=== PATIENT | female | born 1955 | race Caucasian/White ===

== ENCOUNTER 2016-09-24 21:12 | Observation (INO) | payer MEDICAID ==
[~2016-09-24] VITALS: Ht 157.5 cm; Wt 59.5 kg
--- NOTE | ~2016-09-24 | HEMODYNAMI ---
PATIENT:GINA FUENTES MEDICAL RECORD: [id number] : 51 LOCATION:[facility] D.2115 [facility]# [id number] ADMISSION DATE: 09/24/16 Generatedon:09/25/201614:25 Patient name: GINA FUENTES Patient #: [id number] SSN: D OB: 1955 Date of study: 09/25/2016 Page: Of Hemodynamic Procedure Report Patient Data Patient Demographics Procedure consent was obtained First Name: GINA Gender: Female Last Name: ALFREDO : 1955 [facility] Initial: J Age: 61 year(s) Patient #: [id number] Race: Additional ID: [id number] Contact details Address: [address] [place] [address] State: [place] City: [facility] [place] Zip code: [address] Past Medical History History of disease Date Diagnosis Comments CAD Allergies Allergen Reaction Date Comments Reported Codeine 02/13/2015 Other allergy 02/13/2015 IBUPROFEN Admission Admission Data Admission Date: 09/24/2016 Admission Time: 22:32 Room #: D.2115 Procedure Procedure Types Cath Procedure Diagnostic Procedure [facility] w/Coronaries w/Grafts PCI Procedure Coronary Stent Initial Miscellaneous Procedures Moderate Sedation up to 15 minutes Procedure Description Procedure Date Procedure Date: 09/25/2016 Procedure Start Time: 14:00 Procedure End Time: 14:24 Procedure Staff Name Function Kanu Patel MD Performing Physician Dallas Duff RN Nurse Mauricio Russ RT Monitor Stefan Mercedes RT Scrub Procedure Data Cath Procedure Fluoroscopy Diagnostic fluoroscopy Total fluoroscopy Time: 3.4 time: 3.4 min min Diagnostic fluoroscopy Total fluoroscopy dose: 511 dose: 511 mGy mGy Contrast Material Contrast Material Type Amount (ml) Isovue 300 126 Entry Location Entry Primary Successful Side Size Upsize Upsize Entry Closure Succes sful Closure Location (Fr) 1 (Fr) 2 (Fr) Remarks Device Remarks Femoral Right 5 Fr 6 Fr artery Short Estimated blood loss: 10 ml Diagnostic catheters Device Type Used For End Catheter Placement Cordis 5Fr Pigtail Procedure Catheter (MP) Cordis 5Fr JL 4.0 Procedure Catheter (MP) Cordis 5Fr 3DRC Catheter Procedure (MP) Procedure Complications No complications Procedure Medications Medication Administration Route Dosage Oxygen NC 2 l/min Lidocaine 2% added to field 20 Heparin Flush Bag added to field 2 bags (1000units/500ml NS) 0.9% NaCl I.V. 100 ml/hr Zofran I.V. 4 mg Versed I.V. 1 mg Fentanyl I.V. 50 mcg Versed I.V. 1 mg Fentanyl I.V. 50 mcg Heparin Bolus I.V. 4000 units Integrilin (Bolus I.V. 5.6 ml 2mg/ml) Versed I.V. 1 mg Fentanyl I.V. 50 mcg Versed I.V. 1 mg Fentanyl I.V. 50 mcg Plavix P.O. 600 mg Hemodynamics Rest Heart Rate: 62 (bpm) Snapshots Pre Cath Intra NCS Post Cath Vital Signs Time Heart Resp SPO2 etCO2 TB8wdct NIBP (mmHg) Rhythm Pain Sedation Rate (ipm) (%) (mmHg) (mmHg) Status Level (bpm) 13:48:22 59 21 97 0 0 138/67(114) NSR 0 (11) 10(A) , No pain 13:52:38 60 14 96 0 0 130/68(98) NSR 0 (11) 10(A) , No pain 13:56:50 62 16 96 0 0 129/70(99) NSR 0 (11) 10(A) , No pain 14:01:02 64 16 95 0 0 129/69(102) NSR 0 (11) 9(A) , No pain 14:05:13 66 15 96 0 0 133/71(102) NSR 0 (11) 9(A) , No pain 14:09:26 65 14 96 0 0 126/72(91) NSR 0 (11) 9(A) , No pain 14:13:39 66 16 96 0 0 111/63(80) NSR 0 (11) 9(A) , No pain 14:17:47 66 15 97 0 0 115/61(87) NSR 0 (11) 10(A) , No pain 14:21:53 65 8 97 0 0 117/71(90) NSR 0 (11) 10(A) , No pain Medications Time Medication Route Dose Verified Delivered Reason Notes Effectiveness by by 13:49:18 Oxygen NC 2 Kanu Buffie used for l/min Amanda Duff RN procedure 13:49:24 Lidocaine 2% added 20ml Kanu Kanu for local to vial Amanda Patel MD anesthetic field 13:49:34 Heparin Flush added 2 Kanu Kanu used for Bag to bags Amanda Patel MD procedure (1000units/500ml field NS) 13:49:44 0.9% NaCl I.V. 100 Kanu Buffie Per physician ml/hr Amanda Duff RN 13:49:53 Zofran I.V. 4 mg Kanu Wareie Per physician Amanda Duff RN 13:54:15 Versed I.V. 1 mg Kanu Buffie for sedation Amanda Duff RN 13:54:20 Fentanyl I.V. 50 Kanu Buffie for sedation mcg Amanda Duff RN 13:58:58 Versed I.V. 1 mg Kanu Buffie for sedation Amanda Duff RN 13:59:02 Fentanyl I.V. 50 Kanu Buffie for sedation mcg Amanda Duff RN 14:04:38 Heparin Bolus I.V. 4000 Kanu Buffie for verifi ed units Amanda Duff RN anticoagulation with dr patel 14:06:01 Integrilin I.V. 5.6 Kanu Buffie for Wasted (Bolus 2mg/ml) ml Amanda Duff RN antiplatelet 4.4 ml therapy of vial 14:08:19 Versed I.V. 1 mg Kanu Buffie for sedation Amanda Duff RN 14:08:23 Fentanyl I.V. 50 Kanu Buffie for sedation mcg Amanda Duff RN 14:12:46 Versed I.V. 1 mg Kanu Buffie for sedation Amanda Duff RN 14:12:49 Fentanyl I.V. 50 Kanu Buffie for sedation mcg Amanda Duff RN 14:18:57 Plavix P.O. 600 Kanu Buffie for mg Amanda Duff RN antiplatelet therapy Procedure Log Time Note 13:15:42 Mauricio Russ RT(R) sent for patient. Start room use. 13:24:43 Time tracking: Regular hours 13:24:47 Plan of Care:Hemodynamics will remain stable., Cardiac rhythm will remain stable., Comfort level will be maintained., Respiratory function will remain adequate., Patient/ family verbilizes understanding of procedure., Procedure tolerated without complication., Recovers from procedure without complications.. 13:41:36 Patient received from PCU to CCL 1 Alert and oriented. Tansferred to table in Supine position. 13:41:37 Warm blankets applied, and edda hugger turned on for patient comfort. 13:41:38 Correct patient and procedure confirmed by team. 13:41:39 Signed procedure consent form obtained from patient. 13:41:40 ECG and BP/O2 sat monitors applied to patient. 13:47:15 Vital chart was started 13:49:18 Oxygen 2 l/min NC was administered by Dallas Duff RN; used for procedure; 13:49:24 Lidocaine 2% 20ml vial added to field was administered by Kanu Patel MD; for local anesthetic; 13:49:34 Heparin Flush Bag (1000units/500ml NS) 2 bags added to field was administered by Kanu Patel MD; used for procedure; 13:49:44 0.9% NaCl 100 ml/hr I.V. was administered by Dallas Duff RN; Per physician; 13:49:53 Zofran 4 mg I.V. was administered by Dallas Duff RN; Per physician; 13:51:12 Baseline sample Acquired. 13:51:16 Rhythm: sinus rhythm 13:51:17 Full Disclosure recording started 13:51:22 H&P Date Dictated: 09/25/2016 Within 30 days and on chart.. 13:51:23 Pre-procedure instructions explained to patient. 13:51:23 Pre-op teaching completed and patient verbalized understanding. 13:51:25 Family in patients room. 13:51:27 Patient NPO since Midnight. 13:51:29 Is the patient allergic to Iodine/contrast media? No. 13:51:32 Is patient on blood thinner?No 13:51:37 Patient diabetic? No. 13:51:40 Patient not . Patient is over age 55. 13:51:42 Previous problem with sedation/anesthesia? Yes Nausea 13:51:43 Snore? Yes 13:51:55 Sleep apnea? No 13:51:56 Deviated septum? No 13:51:57 Opens mouth fully? Yes 13:51:58 Sticks out tongue? Yes 13:52:02 Airway obstruction? Yes COPD 13:52:11 Dentures? Yes OUT 13:52:14 Pre procedure: right dorsailis pedis pulse 1+ Palpable, but thready & weak; easily obliterated 13:52:16 Patient pain scale 0/10 ?. 13:52:21 IV patent on arrival in left forearm with 0.9% NaCl at [facility]. 13:52:23 Lab results completed and on chart. 13:52:26 Right groin area was prepped with chlora-prep and draped in sterile fashion 13:52:27 Alarms reviewed by R. N. 13:52:27 Sharps counted by scrub and verified by R.N. 13:52:33 Use device set Femoral Dx 13:52:34 Tegaderm 4 x 4 opened to sterile field. 13:52:35 Acist Hand Control opened to sterile field. 13:52:36 Acist Manifold opened to sterile field. 13:52:37 Acist Syringe opened to sterile field. 13:52:37 Bag Decanter opened to sterile field. 13:52:38 Medline Cath Pack opened to sterile field. 13:52:38 Terumo 5Fr [place] Sheath opened to sterile field. 13:52:38 St Mayito 260cm J .035 wire opened to sterile field. 13:52:39 Diagnostic Infinity 5Fr Multipack catheter opened to sterile field. 13:52:47 --------ALL STOP TIME OUT------ 13:52:47 Final Timeout: patient, procedure, and site verified with staff and physician. All members of the team are in agreement. 13:52:51 Right groin site verified by team. 13:52:57 Sedation plan: IV Moderate Sedation Versed, Fentanyl 13:54:15 Versed 1 mg I.V. was administered by Dallas Duff RN; for sedation; 13:54:20 Fentanyl 50 mcg I.V. was administered by Dallas Duff RN; for sedation; 13:58:58 Versed 1 mg I.V. was administered by Dallas Duff RN; for sedation; 13:59:02 Fentanyl 50 mcg I.V. was administered by Dallas Duff RN; for sedation; 14:00:42 Procedure started. 14:00:46 Local anesthetic to right femoral artery with Lidocaine 2% by Kanu Patel MD.INITIAL ACCESS ONLY 14:00:57 A 5 Fr sheath was inserted into the Right Femoral artery 14:01:21 A Cordis 5Fr Pigtail Catheter (MP) was advanced over the wire and used for Procedure. 14:01:25 LV angiography performed. 14:01:29 LV gram done using CROW 14:01:34 EF : 60 % 14::38 Injector settings: Ml/sec: 10, Volume: 20, 14:01:40 Catheter removed. 14::47 A Cordis 5Fr JL 4.0 Catheter (MP) was advanced over the wire and used for Procedure. 14:01:49 LCA angiography performed. 14:02:12 Catheter removed. 14:02:52 A Cordis 5Fr 3DRC Catheter (MP) was advanced over the wire and used for Procedure. 14:03:15 MCFADDEN to LAD angiography performed. 14:04:38 Heparin Bolus 4000 units I.V. was administered by Dallas Duff RN; for anticoagulation; verified with dr patel 14:04:42 RCA angiography performed. 14:04:44 Catheter removed. 14:05:20 Roadster BasixCompak Inflation Kit opened to sterile field. 14:05:30 Cordis 6FR XBLAD 3.5 guide catheter opened to sterile field. 14:06:01 Integrilin (Bolus 2mg/ml) 5.6 ml I.V. was administered by Dallas Duff RN; for antiplatelet therapy; Wasted 4.4 ml of vial 14:06:17 Sheath upsized to a 6 Fr Short. 14:06:30 6 Fr XBLAD 3.5 guide catheter was inserted over the wire 14:07: Guide Catheter removed. pressure damping. 14:07:08 Cordis 6FR XBLAD 3.5 SH guide catheter opened to sterile field. 14:07:23 Kemp Whisper J 300cm 0.014 guide wire opened to sterile field. 14::40 6 Fr XBLAD 3.5 SH guide catheter was inserted over the wire 14:08:19 Versed 1 mg I.V. was administered by Dallas Duff RN; for sedation; 14::23 Fentanyl 50 mcg I.V. was administered by Dallas Duff RN; for sedation; 14:08:37 Whisper wire advanced. 14::43 Wire advanced across lesion. 14:09:29 Inflation number: 1 A Mozec Rx 2.0 x 15 balloon was prepped and advanced across the Ramus, then inflated to 11 RAMA for 0:10 (min:sec). 14:09:57 Multiple inflations made at 11 Atms. 14:10:02 Balloon removed over the wire. 14:12:41 Inflation Number: 2 A Louis OTW 2.25 x 26 stent was prepped and advanced across the Ramus. The stent was deployed at 11 RAMA for 0:10 (min:sec). 14:12:46 Versed 1 mg I.V. was administered by Dallas Duff RN; for sedation; 14:12:49 Fentanyl 50 mcg I.V. was administered by Dallas Duff RN; for sedation; 14:13:13 Inflation number: 3 The stent balloon was then re-inflated across the Ramus to 1 RAMA for 0:10 (min:sec). 14:13:44 Stent catheter was removed intact over wire. 14:13:45 Wire removed. 14:13:45 Guide catheter removed. 14:13:54 Cordis 6Fr Exoseal opened to sterile field. 14:14:17 Procedure ended.(Physican Out) 14:15:18 Fluoroscopy time 03.40 minutes. 14:15:22 Fluoroscopy dose: 511 mGy 14:15:22 Flurop Dose total: 511 14:15:26 Contrast amount:Isovue 300 126ml. 14:15:28 Sharps counted by scrub and verified by R.N. 14:15:29 Insertion/operative site no bleeding no hematoma. 14:15:32 Post-op/insertion site Right Femoral artery dressed using a 4 x 4 and Tegaderm. 14:15:33 Post Procedure Pulses reassessed and unchanged 14:15:44 Post-procedure physical assessment completed. ASA score P 2 - A patient with mild systemic disease as per Kanu Patel MD. 14:15:46 Post procedure rhythm: unchanged. 14:15:48 Estimated blood loss: 10 ml 14:15:50 Post procedure instruction explained to patient.Patient verbalizes understanding. 14:15:50 Patient needs reinforcement of post procedure teaching. 14:16:05 Procedure type changed to Cath procedure, Diagnostic procedure, LHC, LHC w/Coronaries w/Grafts, PCI procedure, Coronary Stent Initial, Miscellaneous Procedures, Moderate Sedation up to 15 minutes 14:16:10 Procedure Complication : No complications 14:18:57 Plavix 600 mg P.O. was administered by Dallas Duff RN; for antiplatelet therapy; 14:24:30 Procedure and supply charges have been captured, reviewed, submitted and are correct. 14:24:31 Vital chart was stopped 14:24:31 See physician's report for complete and final results. 14:24:33 Report given to PCU. 14:24:37 Patient transfered to PCU with Bed. 14:24:39 Procedure ended. 14:24:39 Full Disclosure recording stopped 14:24:42 End room use (Document Last) Intervention Summary Intervention Notes Time ActionType Lesion and Equipment Action# Pressure Duration Attributes Used 14:09:29 Inflate Ramus Mozec Rx 1 11 00:10 balloon 2.0 x 15 balloon 14:12:41 [address] stent Ramus [place] OTW 2 11 00:10 2.25 x 26 stent 14:13:13 Reinflate Ramus [place] OTW 3 1 00:10 stent 2.25 x 26 balloon stent Device Usage Item Name Manufacture Quantity Catalog Hospital Part Current Minimal Lot# / Number Charge Number Stock Stock Serial# Code Tegaderm 4 1 [id number] 701459 [id number] 5 x 4 Acist Hand Acist 1 57145 601847 029241 294028 5 Control Medical Systems AVIA Acist Acist 1 41928 660939 193180 849597 5 Manifold Medical Systems Inc Acist Acist 1 67020 934954 612641 076428 20 Syringe Medical Systems Inc Bag Microtek 1 2002S 233414 17060 343180 5 Dec[place] [employer]. Medline Cardinal 1 [id number] 393028 17650 614797 5 Cath Pack Health Terumo 5Fr Terumo 1 ETH420 596404 005396 254776 [address] Mayito 1 791460 515784 739284 202097 30 260cm J .035 wire Diagnostic Cardinal 1 [id number] 892777 62023 774815 30 Infinity Health 5Fr Multipack catheter Cordis 5Fr Cardinal 1 477846 5 Pigtail Health Catheter (MP) Cordis 5Fr Cardinal 1 313982 5 JL 4.0 Health Catheter (MP) Cordis 5Fr Cardinal 1 529510 5 3DRC Health Catheter (MP) Merit Merit 1 [id number] 619423 719212 158607 15 BasixCompak Medical Inflation Kit Cordis 6FR Cardinal 1 [id number] 317878 312964 740137 10 XBLAD 3.5 Health guide catheter Cordis 6FR Cardinal 1 [id number] 446430 032557 996906 3 XBLAD 3.5 Health SH guide catheter Kemp Kemp 1 [id number] 618378 104573 546214 5 Whisper J Vascular 300cm 0.014 guide wire Mozec Rx Cardinal 1 [id number] 896849 28912 254342 5 UMOA67 2.0 x 15 Health balloon Louis OTW Medtronic 1 [id number] 300193 67483 741708 5 [id number] 2.25 x 26 stent Cordis 6Fr Cardinal 1 EX600 645509 126359 845540 10 [facility] UnBuyThat Signature Audit [place] Stage Time Signature Unsigned Intra-Procedure 09/25/2016 Mauricio Russ 2:25:14 PM RT(R) Signatures Monitor : Mauricio Russ RT Signature : Date : Time : [address] [address]
[~2016-09-24 21:12] MED LIST: ALDACTONE50 MG PO; BAYER CHEWABLE81 MG PO; BRILINTA90 MG PO; COLACE100 MG PO; CYCLOBENZAPRINE10 MG PO; GLUCOPHAGE500 MG PO; HYDROCHLOROTHIA25 MG PO; NAPROSYN500 MG PO; PRILOSEC20 MG PO; PRINIVIL20 MG PO; PROVENTIL HFA6.7 GM INH; RESTORIL15 MG PO; SENOKOT-S TABLE1 TAB PO; TRIGLIDE160 MG PO; ULTRAM50 MG PO; XANAX1 MG PO; ZOLOFT100 MG PO
[2016-09-24 21:48] LABS: BASOPHILS 0.2 % (0-2); EOSINOPHILS 3.2 % (0-7); HEMATOCRIT 38.3 % (36.0-48.0); HEMOGLOBIN 12.6 g/dL (12-16); IMMATURE GRANULOCYTES 0.2 % (0-5); LYMPHOCYTES 29.7 % (15-50); MCH 29.2 pg (26.0-34.0); MCHC 32.9 g/dL (31.0-37.0); MCV 88.7 fL (80.0-100.0); MEAN PLATELET VOLUME 10.3 fL (7.4-10.4); MONOCYTES 4.8 % (2-11); NEUTROPHILS 61.9 % (40-80); PLATELET COUNT 173 10x3/uL (130-400); RBC 4.32 10x6/uL (4.00-5.40); RDW 15.3 % (11.5-14.5); WBC 8.4 10x3/uL (4.8-10.8)
[2016-09-24 22:08] LABS: ALBUMIN 3.3 g/dL (3.4-5.0); ALKALINE PHOSPHATASE 86 U/L (46-116); ALT (SGPT) 35 U/L (10-68); BILIRUBIN - TOTAL 0.29 mg/dL (0.2-1.3); CALC OSMOLALITY 277 mosm/kg (275-300); CALCIUM 8.4 mg/dL (8.5-10.1); CARBON DIOXIDE 26.5 mmol/L (21.0-32.0); CHLORIDE - SERUM 101 mmol/L (98-107); CREATININE - SERUM 0.7 mg/dL (0.6-1.3); GLUCOSE 130 mg/dL (74-106); POTASSIUM - SERUM 3.9 mmol/L (3.5-5.1); PROTEIN - SERUM 6.9 g/dL (6.4-8.2); SODIUM 138 mmol/L (136-145); UREA NITROGEN 12 mg/dL (7-18); eGFR NON AFRICAN AMERICAN 90 mL/min (90-120)
[2016-09-24 22:18] LABS: CHOL - HDL RATIO 6.5 ratio (2.3-4.1); CHOLESTEROL, TOTAL 214 mg/dL (0-200); CKMB 0.2 U/L (0.0-3.6); CREATINE KINASE 43 UL (21-215); HDL CHOLESTEROL 33 mg/dL (32-96); LDL CHOLESTEROL 134 mg/dL (0-100); LDL-HDL RATIO 4.1 ratio (1.5-3.5); TRIGLYCERIDE 239 mg/dL (30-200); TROPONIN-I < 0.017 ng/mL (0.000-0.060)
--- NOTE | 2016-09-24 23:45 | NUR ---
ARRIVED TO FLOOR VIA WHEELCHAIR, ACCOMPANIED BY HOSPITAL STAFF AND FAMILY. ORIENTED TO UNIT AND PLACED ON TELEMETRY (59 SB). WILL CONTINUE TO MONITOR. SEE NURSE ASSESSMENT. CALL LIGHT IN REACH.
[2016-09-25] VITALS: BP 122/61
[2016-09-25 00:28] VITALS: BP 122/61; Ht 157.5 cm; Wt 59.5 kg
[2016-09-25] MEDS ORDERED: TYLENOL #4 W/CO1 TAB PO (00:58)
[2016-09-25] MEDS ORDERED: ZANAFLEX4 MG PO (01:02)
[2016-09-25] MEDS ORDERED: COREG6.25 MG PO (01:03)
[2016-09-25] MEDS ORDERED: KLONOPIN1 MG PO (01:03)
[2016-09-25] MEDS ORDERED: FENOFIBRATE160 MG PO (01:04)
[2016-09-25] MEDS ORDERED: VALIUM 2 MG TAB2 MG PO (01:06)
[2016-09-25] MEDS ORDERED: LISINOPRIL10 MG PO (01:07)
[2016-09-25 02:14] LABS: CKMB 0.1 U/L (0.0-3.6); CREATINE KINASE 37 UL (21-215)
[2016-09-25 02:15] LABS: TROPONIN-I < 0.017 ng/mL (0.000-0.060)
[2016-09-25 04:00] VITALS: BP 102/60
--- NOTE | 2016-09-25 06:35 | NUR ---
NO CHANGES FROM PREVIOUS ASSESSMENT, CALL LIGHT IN REACH. REMAINS NPO.
[2016-09-25 07:54] VITALS: BP 128/62
[2016-09-25 08:25] LABS: BASOPHILS 0.3 % (0-2); HEMATOCRIT 39.4 % (36.0-48.0); HEMOGLOBIN 12.8 g/dL (12-16); IMMATURE GRANULOCYTES 0.2 % (0-5); LYMPHOCYTES 35.2 % (15-50); MCHC 32.5 g/dL (31.0-37.0); MCV 89.1 fL (80.0-100.0); MEAN PLATELET VOLUME 10.3 fL (7.4-10.4); MONOCYTES 6.2 % (2-11); NEUTROPHILS 54.1 % (40-80); PLATELET COUNT 171 10x3/uL (130-400); RBC 4.42 10x6/uL (4.00-5.40); RDW 15.4 % (11.5-14.5); WBC 6.5 10x3/uL (4.8-10.8)
[2016-09-25 08:31] LABS: CKMB 0.1 U/L (0.0-3.6); CREATINE KINASE 38 UL (21-215)
[2016-09-25 08:40] LABS: TROPONIN-I < 0.017 ng/mL (0.000-0.060)
[2016-09-25 08:41] LABS: CALC OSMOLALITY 280 mosm/kg (275-300); CALCIUM 8.7 mg/dL (8.5-10.1); CARBON DIOXIDE 28.1 mmol/L (21.0-32.0); CHLORIDE - SERUM 104 mmol/L (98-107); CREATININE - SERUM 0.7 mg/dL (0.6-1.3); GLUCOSE 149 mg/dL (74-106); POTASSIUM - SERUM 4.1 mmol/L (3.5-5.1); SODIUM 139 mmol/L (136-145); UREA NITROGEN 12 mg/dL (7-18); eGFR NON AFRICAN AMERICAN 90 mL/min (90-120)
--- NOTE | 2016-09-25 09:22 | NUR ---
CONSENTS SIGNED FOR [facility]. WILL CONT. PLAN OF CARE.
[2016-09-25 11:37] VITALS: BP 133/60
--- NOTE | 2016-09-25 13:40 | NUR ---
PRE-OPS GIVEN. TO ALMOND HULLER BY BED.
--- NOTE | 2016-09-25 14:41 | NUR ---
BACK FROM TEACHER'S AIDE. VS WNL. RIGHT GROIN STABLE WITHOUT BLEEDING OR HEMATOMA NOTED. WILL MONITOR.
[2016-09-25] MEDS ORDERED: PLAVIX75 MG PO (15:00)
--- NOTE | 2016-09-25 18:38 | NUR ---
BED REST UP. GROIN STABLE.
[2016-09-25 20:00] VITALS: BP 142/64
[2016-09-26 04:00] VITALS: BP 136/76
--- NOTE | 2016-09-26 04:33 | NUR ---
MEDICATED WITH ZOFRAN FOR NAUSEA. DRESSING TO RIGHT GROIN C/D/I. MONITOR AND CPOC.
--- NOTE | 2016-09-26 07:00 | NUR ---
INITIAL ROUNDS MADE. PT LYING IN BED RESTING WELL WITH EYES CLOSED. PT AWKAENED EASILY WHEN NAME CALLED. RIGHT GROIN STABLE. VSS. TO DC HOME LATER TODAY. DISCUSSED PLAN OF CARE AND PT VERBALIZES UNDERSTANDING.
[2016-09-26 08:55] VITALS: BP 131/50
--- NOTE | 2016-09-26 09:30 | NUR ---
IVSL REMOVED WITH CATH TIP INTACT.
--- NOTE | 2016-09-26 10:04 | NUR ---
DC INSTRUCTIONS GIVEN, INCLUDING SCRIPT FOR PLAVIX AND STENT CARED. PT VERBALIZES UNDERSTANDING AND NO QUESTIONS VOICED. STATES WILL BE A WHILE BEFORE CAN COME PICK HER UP.
--- NOTE | 2016-09-26 11:30 | NUR ---
TAKEN DOWNSTAIRS VIA WC.
--- NOTE | 2016-09-26 12:31 | OP ---
PATIENT NAME: GINA FUENTES MEDICAL RECORD: [id number] :51 LOCATION:D.M2 D.2115 ADMISSION DATE:09/24/16 SURGEON: APRYL ORTIZ MD DATE OF OPERATION: 09/25/2016 PROCEDURES: 1. PTCA stent left circumflex, ramus intermedius. 2. Left heart catheterization. 3. Selective coronary angiography. 4. Left ventriculogram. INDICATION: Unstable angina. PROCEDURE IN DETAIL: After informed consent was obtained and after detailed explanation of risks, benefits as well as alternative therapies, the patient elected to proceed with angiogram and angioplasty. The right femoral area is prepped and draped in normal sterile fashion. The right femoral artery was cannulated via modified Seldinger technique with placement of 6-Togolese sheath. All catheters exchanged through this sheath. FINDINGS: The left ventriculogram was performed in standard 30-degree CROW view, reveals good cardiac wall motion, ejection fraction 50%. SELECTIVE CORONARY ANGIOGRAPHY: 1. Left main is with no significant angiographic disease. 2. Left anterior descending has a 70% stenosis proximally, then the vessel was 90% stenosis. 3. MCFADDEN to the distal LAD is widely patent. 4. Left circumflex has a relatively large ramus intermedius with 90%-95% in-stent restenosis of the previously placed stent. 5. Right coronary has 50% stenosis in the mid vessel, but this does not appear to be flow limiting. PTCA STENT OF THE RAMUS INTERMEDIUS: The stent used is a 2.25 x 26 mm Resolute [place]. Result was 0% residual stenosis. OVERALL IMPRESSION: Successful percutaneous transluminal coronary angioplasty stent of the left circumflex, ramus intermedius going from 95% initial stenosis to 0% residual. TRANSINT:[id number] Voice Confirmation ID: [id number] DOCUMENT ID: [id number] APRYL ORTIZ MD at 1231 CC: [id number] DICTATION DATE: 09/25/16 1422 GANG RIDER: [id number] DIS IN 09/26/16 [place] [id number] [place] [id number]
== END 2016-09-26 11:30 | disposition home or self-care (01) ==
LOC: D.ER 21:12 → D.M2 22:32 → OBSVTIME 22:32 → D.M2 22:32
PROVIDERS: Emergency Medicine; ADMIT Internal Medicine Interventional Cardiology
DX: I25.110 Atherosclerotic heart disease of native coronary artery with unstable angina pectoris (principal); Z95.1 Presence of aortocoronary bypass graft; Z95.5 Presence of coronary angioplasty implant and graft; T82.855A Stenosis of coronary artery stent, initial encounter; E11.9 Type 2 diabetes mellitus without complications; F41.9 Anxiety disorder, unspecified; F32.9 Major depressive disorder, single episode, unspecified; J44.9 Chronic obstructive pulmonary disease, unspecified; I10 Essential (primary) hypertension; Z72.0 Tobacco use

== ENCOUNTER 2017-05-12 00:17 | Emergency (ER) | payer MEDICAID ==
[2016-09-25 00:28] VITALS: BMI 24.0
[~2017-05-12 00:17] MED LIST changes: +COREG6.25 MG PO; +FENOFIBRATE160 MG PO; +KLONOPIN1 MG PO; +LISINOPRIL10 MG PO; +PLAVIX75 MG PO; +TYLENOL #4 W/CO1 TAB PO; +VALIUM 2 MG TAB2 MG PO; +ZANAFLEX4 MG PO
[2017-05-12 00:58] LABS: BASOPHILS 0.2 % (0-2); EOSINOPHILS 1.7 % (0-7); HEMATOCRIT 42.3 % (36.0-48.0); HEMOGLOBIN 13.4 g/dL (12-16); IMMATURE GRANULOCYTES 0.2 % (0-5); LYMPHOCYTES 23.5 % (15-50); MCH 28.9 pg (26.0-34.0); MCHC 31.7 g/dL (31.0-37.0); MCV 91.4 fL (80.0-100.0); MEAN PLATELET VOLUME 10.5 fL (7.4-10.4); MONOCYTES 3.6 % (2-11); NEUTROPHILS 70.8 % (40-80); PLATELET COUNT 175 10x3/uL (130-400); RBC 4.63 10x6/uL (4.00-5.40); RDW 15.5 % (11.5-14.5); WBC 8.4 10x3/uL (4.8-10.8)
[2017-05-12 01:11] LABS: ALBUMIN 3.8 g/dL (3.4-5.0); ALKALINE PHOSPHATASE 72 U/L (46-116); ALT (SGPT) 27 U/L (10-68); CALC OSMOLALITY 278 mosm/kg (275-300); CARBON DIOXIDE 24.7 mmol/L (21.0-32.0); CHLORIDE - SERUM 103 mmol/L (98-107); CREATININE - SERUM 0.8 mg/dL (0.6-1.3); GLUCOSE 134 mg/dL (74-106); POTASSIUM - SERUM 3.8 mmol/L (3.5-5.1); PROTEIN - SERUM 7.6 g/dL (6.4-8.2); SODIUM 138 mmol/L (136-145); UREA NITROGEN 14 mg/dL (7-18); eGFR NON AFRICAN AMERICAN 77 mL/min (90-120)
[2017-05-12 01:22] LABS: CHOL - HDL RATIO 6.2 ratio (2.3-4.1); CHOLESTEROL, TOTAL 216 mg/dL (0-200); CKMB 0.4 U/L (0.0-3.6); CREATINE KINASE 30 UL (21-215); HDL CHOLESTEROL 35 mg/dL (32-96); LDL CHOLESTEROL 119 mg/dL (0-100); LDL-HDL RATIO 3.4 ratio (1.5-3.5); TRIGLYCERIDE 313 mg/dL (30-200); TROPONIN-I < 0.017 ng/mL (0.000-0.060)
== END 2017-05-12 18:41 | disposition home or self-care (01) ==
LOC: D.ER 00:17
PROVIDERS: Family Medicine
DX: R07.9 Chest pain, unspecified (principal); E11.9 Type 2 diabetes mellitus without complications; Z79.4 Long term (current) use of insulin; I10 Essential (primary) hypertension

== ENCOUNTER 2017-12-28 02:20 | Observation (INO) | payer MEDICAID ==
[~2017-12-28] VITALS: Ht 157.5 cm; Wt 59.1 kg
[2017-12-28] VITALS (7 sets, daily range): BP systolic 95–141; BP diastolic 43–96; Ht 157.5 cm; Wt 59.1 kg
--- NOTE | ~2017-12-28 | HEMODYNAMI ---
PATIENT:GINA FUENTES MEDICAL RECORD: [id number] : 51 LOCATION:D.MS [facility]2218 ADMISSION DATE: 12/28/17 Generatedon:12/29/201715:28 Patient name: GINA FUENTES Patient #: [id number] SSN: D OB: 1955 Date of study: 12/29/2017 Page: Of Hemodynamic Procedure Report Patient Data Patient Demographics Procedure consent was obtained First Name: GINA Gender: Female Last Name: ALFREDO : 1955 [facility] Initial: J Age: 62 year(s) Patient #: [id number] Race: Additional ID: [id number] Contact details Address: [address] [place] [address] State: [place] City: [facility] Zip code: [address] Past Medical History History of disease Date Diagnosis Comments CAD Allergies Allergen Reaction Date Comments Reported Codeine 02/13/2015 Other allergy 02/13/2015 IBUPROFEN Admission Admission Data Admission Date: 12/28/2017 Admission Time: 4:37 Admit Source: Emergency department Room #: D.2218 Lab Results Lab Result Date: 12/29/2017 Lab Result Time: 5:55 Biochemistry Name Units Result Min Max BUN mg/dl 8 --(*---)-- 7 18 Creatinine mg/dl 0.7 --(*---)-- 0.6 1.3 CBC Name Units Result Min Max Hematocrit % 30.6 *-(----)-- 42 54 Hemoglobin g/dl 9.9 *-(----)-- 13.5 17.5 Procedure Procedure Types Cath Procedure Diagnostic Procedure LHC LHC w/Coronaries w/Grafts Sedation Charges Moderate Sedation up to 45 minutes PCI Procedure Coronary Stent Coronary Stent Initial Procedure Description Procedure Date Procedure Date: 12/29/2017 Procedure Start Time: 14:34 Procedure End Time: 15:28 Procedure Staff Name Function Suraj Ramirez MD Performing Physician Nir Villaseñor RT Monitor Mariella Ramirez RT Scrub Carmelita Hinojosa RN Nurse Dallas Duff RN Bushel Worker Procedure Data Cath Procedure Fluoroscopy Diagnostic fluoroscopy Total fluoroscopy Time: 6.1 time: 6.1 min min Diagnostic fluoroscopy Total fluoroscopy dose: 419 dose: 419 mGy mGy Contrast Material Contrast Material Type Amount (ml) Isovue 300 92 Entry Location Entry Primary Successful Side Size Upsize Upsize Entry Closure Succes sful Closure Location (Fr) 1 (Fr) 2 (Fr) Remarks Device Remarks Femoral Left 5 Fr 6 Fr Exoseal artery Short Estimated blood loss: 10 ml Diagnostic catheters Device Type Used For End Catheter Placement MULTIPACK JL 4.0 5Fr Procedure catheter MULTIPACK 3DRC 5Fr Procedure catheter DIAGNOSTIC IMT 5Fr Procedure Catheter ([id number]) MULTIPACK Pigtail 5 Fr Procedure catheter Procedure Complications No complications Procedure Medications Medication Administration Route Dosage 0.9% NaCl I.V. 100 ml/hr Oxygen etCO2 Nasal cannula 2 l/min Lidocaine 2% added to field 20 Heparin Flush Bag added to field 2 bags (1000units/500ml NS) Versed I.V. 2 mg Fentanyl I.V. 50 mcg Versed I.V. 1 mg Fentanyl I.V. 25 mcg Versed I.V. 1 mg Fentanyl I.V. 25 mcg Versed I.V. 1 mg Fentanyl I.V. 50 mcg Versed I.V. 1 mg Fentanyl I.V. 50 mcg Heparin Bolus I.V. 6000 units Hemodynamics Rest Heart Rate: 66 (bpm) Pressure Samples Time Site Value (mmHg) Purpose Heart Use Rate(bpm) 15:03 LV 126/-2,28 Snapshot 56 15:03 AO 119/54(79) Pullback 62 15:03 LV 126/-2,27 Pullback 62 Gradients Valve Time Site 1 Site 2 Mean SEP/DFP Peak To Heart Use (mmHg) (sec/min) Peak Rate (mmHg) (bpm) Aortic 15:03 LV AO 5 20 7 62 126/-2,27 119/54(79) Calculations Valve P-P Mean Valve Index Valve Source Name Gradient Area Flow (cm2) Aortic 7 5 7 5 Snapshots Pre Cath Intra NCS Post Cath Vital Signs Time Heart Resp SPO2 etCO2 NIBP (mmHg) Rhythm Pain Sedation Rate (ipm) (%) (mmHg) Status Level (bpm) 14:25:15 66 21 98 15.6 121/69(98) NSR 0 (11) 10(A) , No pain 14:29:35 63 21 98 15 128/62(105) NSR 0 (11) 10(A) , No pain 14:33:51 62 17 100 14.8 123/63(91) NSR 0 (11) 10(A) , No pain 14:38:07 61 17 100 17.8 125/65(97) NSR 0 (11) 10(A) , No pain 14:42:23 61 16 99 21.5 121/61(100) NSR 0 (11) 10(A) , No pain 14:46:37 62 18 98 17.1 125/68(96) NSR 0 (11) 10(A) , No pain 14:50:49 64 13 95 20.1 121/66(94) NSR 0 (11) 9(A) , No pain 14:55:03 63 11 98 17.1 119/63(94) NSR 0 (11) 9(A) , No pain 14:59:15 67 13 98 18.6 127/73(104) NSR 0 (11) 10(A) , No pain 15:03:33 65 17 97 18.6 120/52(91) NSR 0 (11) 10(A) , No pain 15:07:47 64 13 98 19.3 109/60(88) NSR 0 (11) 10(A) , No pain 15:12:01 63 13 97 16.3 119/60(89) NSR 0 (11) 10(A) , No pain 15:16:21 66 14 97 26.8 113/49(86) NSR 0 (11) 10(A) , No pain 15:20:35 67 17 98 20.1 116/63(99) NSR 0 (11) 10(A) , No pain 15:24:47 66 18 99 17.1 132/69(94) NSR 0 (11) 10(A) , No pain Medications Time Medication Route Dose Verified Delivered Reason Notes Effectiveness by by 14:24:12 0.9% NaCl I.V. 100 Carmelita Suraj used for ml/hr Ashish Ramirez MD residential sales representative 14:24:19 Oxygen etCO2 2 Carmelita Suraj used for Nasal l/min Ashish Ramirez MD procedure cannula RN 14:24:25 Lidocaine 2% added 20ml Carmelita Suraj for local to vial Ashish Ramirez MD anesthetic field RN 14:24:30 Heparin Flush added 2 Carmelita Suraj used for Bag to bags Ashish Ramirez MD procedure (1000units/500ml field RN NS) 14:32:10 Fentanyl I.V. 50 Carmelita Carmelita for sedation mcg Ashish Hinojosa RN RN 14:32:55 Versed I.V. 2 mg Carmelita Carmelita for sedation Ashish Hinojosa RN RN 14:39:27 Versed I.V. 1 mg Carmelita Carmelita for sedation Ashish Hinojosa RN RN 14:39:31 Fentanyl I.V. 25 Carmelita Carmelita for sedation mcg Ashish Hinojosa RN RN 14:44:34 Versed I.V. 1 mg Carmelita Carmelita for sedation Ashish Hinojosa RN RN 14:44:41 Fentanyl I.V. 25 Carmelita Carmelita for sedation mcg Ashish Hinojosa RN RN 14:47:27 Versed I.V. 1 mg Carmelita Buffie for sedation Ashish Duff RN RN 14:47:31 Fentanyl I.V. 50 Carmelita Buffie for sedation mcg Ashish Duff RN RN 14:53:33 Versed I.V. 1 mg Carmelita Buffie for sedation Ashish Duff RN RN 14:53:37 Fentanyl I.V. 50 Carmelita Buffie for sedation mcg Ashish Duff RN RN 15:09:12 Heparin Bolus I.V. 6000 Carmelita Buffie for verif ied units Ashish Duff RN anticoagulation with dr DALLAS ramirez Procedure Log Time Note 13:50:31 Carmelita Hinojosa RN sent for patient. Start room use. 13:54:22 Informed consent obtained and on chart 13:54:25 Admit Source: Emergency department 13:54:51 Diagnostic Cath status Elective 13:54:52 Time tracking: Regular hours (M-F 7:00 - 5:00) 13:54:56 Plan of Care:Hemodynamics will remain stable., Cardiac rhythm will remain stable., Comfort level will be maintained., Respiratory function will remain adequate., Patient/ family verbilizes understanding of procedure., Procedure tolerated without complication., Recovers from procedure without complications.. 13:57:34 H&P Date Dictated: 12/28/2017 Within 30 days and on chart.. 14:00:49 Lab results completed and on chart. 14::20 Lab Result : BUN 8 mg/dl 14::20 Lab Result : Creatinine 0.7 mg/dl 14::20 Lab Result : Hematocrit 30.6 % 14::20 Lab Result : Hemoglobin 9.9 g/dl 14:17:00 Patient received from Med/Surg to CCL 1 Alert and oriented. Tansferred to table in Supine position. 14:17:01 Warm blankets applied, and edda hugger turned on for patient comfort. 14:17:01 Correct patient and procedure confirmed by team. 14:17:02 ECG and BP/O2 sat monitors applied to patient. 14:23:59 Vital chart was started 14:24:12 0.9% NaCl 100 ml/hr I.V. was administered by Suraj Ramirez MD; used for procedure; 14:24:19 Oxygen 2 l/min etCO2 Nasal cannula was administered by Suraj Ramirez MD; used for procedure; 14:24:25 Lidocaine 2% 20ml vial added to field was administered by Suraj Ramirez MD; for local anesthetic; 14:24:30 Heparin Flush Bag (1000units/500ml NS) 2 bags added to field was administered by Suraj Ramirez MD; used for procedure; 14:26:17 Baseline sample Acquired. 14:26:19 Rhythm: sinus rhythm 14::20 Full Disclosure recording started 14:26:22 Pre-procedure instructions explained to patient. 14:26:22 Pre-op teaching completed and patient verbalized understanding. 14:26:24 Family in patients room. 14:26:27 Patient NPO since Breakfast. 14:27:19 Is the patient allergic to Iodine/contrast media? No. 14:27:23 Is patient on blood thinner?Yes 14:27:25 ACC The patient was administered the following blood thiners within the last 24 hours: ACCPlavix 14:30:07 Patient diabetic? Yes. 14:30:08 If diabetic: On Metformin? Yes 14:30:13 If on Metformin: Last Dose? 11/26/2017 14:30:16 Previous problem with sedation/anesthesia? No ? 14:30:16 Snore? Yes 14:30:17 Sleep apnea? No 14:30:18 Deviated septum? No 14:30:18 Opens mouth fully? Yes 14:30:19 Sticks out tongue? Yes 14:30:21 Airway obstruction? No ? 14:30:23 Dentures? Yes out 14:30:27 Pre procedure: right posterior tibial pulse 2+ Normal; easily identifiable; not easily obliterated 14:30:34 IV patent on arrival in right forearm with 0.9% NaCl at [facility]. 14:30:36 Right groin area was prepped with chlora-prep and draped in sterile fashion 14:30:37 Alarms reviewed by R. N. 14:30:37 Sharps counted by scrub and verified by R.N. 14:30:39 Use device set Femoral Dx 14:30:40 ACIST Syringe (41575) opened to sterile field. 14:30:40 Bag Decanter (2002S) opened to sterile field. 14:30:41 Medline Cath Pack ([id number]) opened to sterile field. 14:30:41 ACIST Hand Control (88224) opened to sterile field. 14:30:42 ACIST Manifold (49137) opened to sterile field. 14:30:43 Tegaderm 4 x 4 (1626W) opened to sterile field. 14:30:44 SHEATH Prelude 5Fr 0.035 (VMZ-9J-20-035) opened to sterile field. 14:30:45 DIAGNOSTIC Multipack 5Fr catheter set ([id number]) opened to sterile field. 14:30:46 DIAGNOSTIC WIRE .035 260cm J wire (428298) opened to sterile field. 14:31:05 Physician arrived 14:31:06 --------ALL STOP TIME OUT------ 14:31:06 Final Timeout: patient, procedure, and site verified with staff and physician. All members of the team are in agreement. 14:31:13 Right groin site verified by team. 14:31:16 Physical assessment completed. ASA score P 2 - A patient with mild systemic disease as per Suraj Ramirez MD. 14:31:18 Sedation plan: IV Moderate Sedation Medication:Versed, Fentanyl 14:32:10 Fentanyl 50 mcg I.V. was administered by Carmelita Hinojosa RN; for sedation; 14:32:55 Versed 2 mg I.V. was administered by Carmelita Hinojosa RN; for sedation; 14:34:06 Zero performed for pressure channel P1 14:34:33 Procedure started. 14:34:36 Local anesthetic to right femoral artery with Lidocaine 2% by Suraj Ramirez MD.INITIAL ACCESS ONLY 14:39:27 Versed 1 mg I.V. was administered by Carmelita Hinojosa RN; for sedation; 14:39:31 Fentanyl 25 mcg I.V. was administered by Carmelita Hinojosa RN; for sedation; 14:44:34 Versed 1 mg I.V. was administered by Carmelita Hinojosa RN; for sedation; 14:44:41 Fentanyl 25 mcg I.V. was administered by Carmelita Hinojosa RN; for sedation; 14:47:27 Versed 1 mg I.V. was administered by Dallas Duff RN; for sedation; 14:47:31 Fentanyl 50 mcg I.V. was administered by Dallas Duff RN; for sedation; 14:47:49 Left groin area was prepped with chlora-prep and draped in sterile fashion 14:48:02 Local anesthetic to left femerol artery with Lidocaine 2% by Suraj Ramirez MD.ADDITIONAL ACCESS 14:51:24 MICROPUNCTURE 4FR iiko (I38650) opened to sterile field. 14:53:17 Access obtained with 4Fr micropunture. 14:53:33 Versed 1 mg I.V. was administered by Dallas Duff RN; for sedation; 14:53:37 Fentanyl 50 mcg I.V. was administered by Dallas Duff RN; for sedation; 14:53:53 A 5 Fr sheath was inserted into the Left Femoral artery 14:55:05 A MULTIPACK JL 4.0 5Fr catheter was advanced over the wire and used for Procedure. 14:56:22 Catheter exchanged over wire. 14:56:27 A MULTIPACK 3DRC 5Fr catheter was advanced over the wire and used for Procedure. 14:57:53 RCA angiography performed. 14:58:57 Catheter exchanged over wire. 14:59:07 A DIAGNOSTIC IMT 5Fr Catheter ([id number]) was advanced over the wire and used for Procedure. 15:00:30 MCFADDEN to LAD angiography performed. 15:03:03 Catheter exchanged over wire. 15:03:08 A MULTIPACK Pigtail 5 Fr catheter was advanced over the wire and used for Procedure. 15:03:26 LV gram done using CROW 15:03:29 Injector settings: Ml/sec: 10, Volume: 20, 15:03:32 LV hemodynamics recorded. 15:03:38 EF : 50 % 15:05:19 Catheter removed. 15:05:39 BMW 300cm [place] 2 J wire ([id number]) opened to sterile field. 15:05:40 INFLATOR Merit BasixCompak (JO0412) opened to sterile field. 15:05:40 SHEATH 6FR [place] (VYD775) opened to sterile field. 15:05:49 TUBING High Pressure Extension Tubing (James) (GQ5821Q) opened to sterile field. 15:06:08 Sheath upsized to a 6 Fr Short. 15:07:01 GUIDE 6FR 3DRC catheter ([id number]) opened to sterile field. 15:07:11 6 Fr 3DRC guide catheter was inserted over the wire 15:09:12 Heparin Bolus 6000 units I.V. was administered by Dallas Duff RN; for anticoagulation; verified with dr ramirez 15:09:45 BMW wire advanced. 15:11:12 Wire advanced across lesion. 15:15:19 Place stent Inflation Number: 1 A PAIGE RX 3.0 x 15 stent ([id number]) was prepped and advanced across the Mid RCA. The stent was deployed at 14 RAMA for 0:10 (min:sec). 15:16:32 Stent catheter was removed intact over wire. 15:19:09 Place stent Inflation Number: 1 A PAIGE OTW 3.0 x 18 stent ([id number]) was prepped and advanced across the Prox RCA. The stent was deployed at 14 RAMA for 0:10 (min:sec). 15:19:51 Wire removed. 15:19:52 Guide catheter removed. 15:19:57 EXOSEAL 6Fr (EX600) opened to sterile field. 15:21:00 Sheath removed intact; hemostasis achieved with Exoseal to the Left Femoral artery. 15:21:02 Procedure ended.(Physican Out) 15::45 Fluoroscopy time 06.10 minutes. 15:23:54 Flurop Dose total: 419 15:23:54 Fluoroscopy dose: 419 mGy 15:24:08 Contrast amount:Isovue 300 92ml. 15:24:09 Sharps counted by scrub and verified by R.N. 15:25:00 Insertion/operative site no bleeding no hematoma. 15:25:03 Post-op/insertion site Left Femoral artery dressed using a 4 x 4 and Tegaderm. 15:25:09 Post left femerol artery:stable, soft, clean and dry 15:25:11 Post Procedure Pulses reassessed and unchanged 15:25:12 Post-procedure physical assessment completed. ASA score P 2 - A patient with mild systemic disease as per Suraj Ramirez MD. 15:25:15 Post procedure rhythm: unchanged. 15:25:22 Estimated blood loss: 10 ml 15:25:23 Post procedure instruction explained to patient.Patient verbalizes understanding. 15:25:23 Patient needs reinforcement of post procedure teaching. 15:25:35 Procedure type changed to Cath procedure, Diagnostic procedure, LHC, LHC w/Coronaries w/Grafts, Sedation Charges, Moderate Sedation up to 45 minutes, PCI procedure, Coronary Stent, Coronary Stent Initial 15:26:19 Procedure and supply charges have been captured, reviewed, submitted and are correct. 15:26:21 Procedure Complication : No complications 15::23 Vital chart was stopped 15::24 See physician's report for complete and final results. 15:28:01 Report given to Pre/Post Procedure Room. 15:28:03 Patient transfered to Pre/Post Procedure Room with Stretcher. 15:28:05 Procedure ended. 15:28:05 Full Disclosure recording stopped 15:28:10 End room use (Document Last) Intervention Summary Intervention Notes Time ActionType Lesion and Equipment Used Action# Pressure Duration Attributes 15:15:19 Place stent Mid RCA PAIGE RX 3.0 x 1 14 00:10 15 stent ([id number]) 15:19:09 [address] stent Prox RCA PAIGE OTW 3.0 x 1 14 00:10 18 stent ([id number]) Device Usage Item Name Manufacture Quantity Catalog Number Hospital Part Current Minimal Lot# / Charge Number Stock Stock Serial# Code ACIST Syringe Acist 1 78240 413840 666572 291503 20 (82550) Medical Systems ITADSecurity Bag Decanter Microtek 1 625997 22197 100813 5 () Medical Inc. Medline Cath Medline 1 [id number] 950171 79161 620204 5 Pack ([id number]) ACIST Hand Acist 1 92957 027829 256484 196712 5 Control (78592) Medical Systems Inc ACIST Manifold Acist 1 16967 775589 972709 039300 5 (65263) Medical Systems Inc Tegaderm 4 x 4 3M 1 1626W 419397 847394 467639 5 (1626W) SHEATH Prelude Merit 1 EHP-0X-76-035 125715 841568 228894 5 5Fr 0.035 Medical (WSK-0U-60-035) DIAGNOSTIC Cardinal 1 PS2615 836799 15211 987048 30 Multipack 5Fr Health catheter set (OI9565) DIAGNOSTIC WIRE [place] 1 834992 243102 002781 617514 30 .035 260cm J wire (998799) MICROPUNCTURE [place] 1 P63027 512283 641959 594387 5 4FR iiko (O58699) MULTIPACK JL Cardinal 1 399774 5 4.0 5Fr Health catheter MULTIPACK 3DRC Cardinal 1 012117 5 5Fr catheter Health DIAGNOSTIC IMT [place] 1 [id number] 598529 929255 48971 5 5Fr Catheter Scientific ([id number]) MULTIPACK Cardinal 1 047659 5 Pigtail 5 Fr Health catheter BMW 300cm [place] 1 [id number] 093059 731879 200857 5 [place] 2 J Vascular wire (6644520V) INFLATOR Merit Merit 1 NR9959 720279 985793 478366 15 BasixCompak Medical (ZN9480) SHEATH 6FR Terumo 1 XYA383 135757 087121 745171 40 [place] (PHL714) TUBING High Merit 1 [id number] 134329 44056 896878 10 Pressure Medical Extension Tubing (Ramirez) (FQ5045V) GUIDE 6FR 3DRC Medtronic 1 QQ86FUX 532998 645458 294116 1 catheter (NG64XKD) PAIGE RX 3.0 x Medtronic 1 [id number] 465935 3610382 099297 5 [id number] 15 stent ([id number]) PAIGE OTW 3.0 x Medtronic 1 [id number] 201995 1091775 527976 5 [id number] 18 stent ([id number]) EXOSEAL 6Fr Cardinal 1 EX600 918240 385032 403987 10 (EX600) Health Signature Audit [place] Stage Time Signature Unsigned Intra-Procedure 12/29/2017 Nir Villaseñor 3:28:41 PM RT(R) Signatures Monitor : Nir Villaseñor RT Signature : Date : Time : [place] [id number] [place] [address]
--- NOTE | ~2017-12-28 | MORECARE ---
CASE MANAGEMENT DISCHARGE SUMMARY PATIENT: GINA FUENTES UNIT: [id number] ADM DATE: 12/28/17 AGE: 62 : [birth year] SEX: F ROOM/BED: D.[facility] AUTHOR: OSMANI GALEANO PHYSICIAN: REFERRING PHYSICIAN: ERIC VANN MD DATE OF SERVICE: 12/31/17 Discharge Plan Patient Name: [facility]INA [facility]UENTES [facility] [facility] 1955 Planned Disposition: Home Anticipated Discharge Date: 12/30/17 Discharge Date: 12/30/2017 Expected LOS: 2 Initial Reviewer: [email or web address] Initial Review Date: 12/31/2017 Generated: 12/31/17 9:51 am Last DP export: 12/31/17 7:45 a Patient Name: GINA FUENTES Page 50072 at 0851 All edits/amendments must be made on the electronic document DICTATION DATE: 12/31/17 0851 ADVANCED PRACTICE NURSE PSYCHOTHERAPIST: SITA 12/31/17 0851 RPT#: [id number] DC DATE:12/30/17 STATUS: DIS IN [facility] [address] [place] [address] END OF REPORT
--- NOTE | ~2017-12-28 | CN ---
PATIENT NAME:GINA FUENTES MEDICAL RECORD: [id number] : 51 LOCATION:D. D.2113 ADMIT DATE: 12/28/17 ACCOUNT: [id number] CONSULTING PHYSICIAN: LISSETTE AMAYA MD REFERRING PHYSICIAN: ERIC VANN MD DATE OF CONSULTATION: 12/28/2017 HISTORY: A 62-year-old female with known history of coronary artery disease, status post intervention. She reports about 2-week history of intermittent pain, radiating to the back and some dysequilibrium, reminiscent of her previous angina. She was brought in actually with urinary tract infection as well as mental status changes, thought she may have accidentally taken extra of her opioids. Currently, mental status is quite clear. She does report some increased angina over the past 2 weeks up to a month. PAST MEDICAL HISTORY: 1. History of obstructive pulmonary disease. 2. Hypertension. 3. Hyperlipidemia. 4. Coronary artery disease as described above. 5. Diabetes mellitus. MEDICATIONS: Include metformin 500 b.i.d., Prilosec 20 daily, Ultram 50 mg q. 6, Klonopin 1 mg t.i.d., Zoloft 100 mg p.o. daily, aspirin 81 daily, lisinopril 10 daily, fenofibrate 160 daily, carvedilol 6.25 b.i.d., Plavix 75 daily, and albuterol inhaler. ALLERGIES: None known. SOCIAL HISTORY: Smokes less than a pack a day. Nondrinker. She takes care of ADLs. REVIEW OF SYSTEMS: The patient reports easy bruising but reports no swollen glands. The patient reports no fever, no night sweats, no significant weight gain, no significant weight loss. No significant exercise tolerance. The patient reports no dry eyes, no irritation, no vision change. Patient reports no difficulty hearing and no ear pain. Patient reports no frequent nose bleeds or nose and sinus problems. Patient reports on arm pain on exertion. No shortness of breath while lying down. No history of heart murmur. Patient reports no cough, no wheezing or coughing up blood. Patient reports no abdominal pain, no vomiting. Normal appetite. No diarrhea and not vomiting blood. No nausea and no constipation. Patient reports no incontinence. No difficulty urinating. No hematuria. No increased frequency. Patient reports no muscle aches. No weakness, no arthralgias, no back pain. No swelling of the extremities. Patient reports no abnormal mole, no jaundice, no rashes. Reports no loss of consciousness. No weakness and no numbness. No seizures, dizziness, or headaches. The patient reports no depression, no sleep disturbance, feeling safe in a relationship and no alcohol abuse. Patient reports on fatigue. Reports no runny nose or sinus pressure. No itching, no hives, and no frequent sneezing. PHYSICAL EXAMINATION: GENERAL: Pleasant female, in no acute distress. VITAL SIGNS: Blood pressure 141/51. Pulse 67 and regular. HEENT: Normocephalic and atraumatic. CONSULT REPORT [id number] GINA FUENTES NECK: No bruits noted. HEART: Regular. II/ systolic ejection murmur. LUNGS: Slightly prolonged respiratory phase, otherwise good air movement. ABDOMEN: Soft and nontender. EXTREMITIES: Pulses 2+. There is no edema. NEUROLOGIC: Grossly intact. IMPRESSION: Acute coronary syndrome, accelerated angina. PLAN: Diagnostic angiography and intervention based on above. TRANSINT:[id number] Voice Confirmation ID: [id number] DOCUMENT ID: [id number] LISSETTE AMAYA MD at 1418 CC: [id number] DICTATION DATE: 12/28/17 155 PHOTOGRAPHER STILL: 12/28/17 1653 DIS IN 12/30/17 [facility] [address] [place] [address]
--- NOTE | ~2017-12-28 | MORECARE ---
CASE MANAGEMENT DISCHARGE SUMMARY PATIENT: GINA FUENTES UNIT: [id number] ADM DATE: 12/28/17 AGE: 62 : [birth year] SEX: F ROOM/BED: D.[facility] AUTHOR: OSMANI GALEANO PHYSICIAN: REFERRING PHYSICIAN: ERIC VANN MD DATE OF SERVICE: 12/31/17 Discharge Plan Patient Name: GINA FUENTES [facility] [facility] 1955 Planned Disposition: Home Anticipated Discharge Date: 12/30/17 Discharge Date: 12/30/2017 Expected LOS: 2 Initial Reviewer: [email or web address] Initial Review Date: 12/31/2017 Generated: 12/31/17 9:45 am Patient Name: GINA FUENTES Page 53734 at 0845 All edits/amendments must be made on the electronic document DICTATION DATE: 12/31/17843 CORRUGATOR OPERATOR HELPER: SITA 12/31/1744 RPT#: [id number] DC DATE:12/30/17 STATUS: DIS IN [facility] [address] [place] [address] END OF REPORT
[2017-12-28 03:42] LABS: BASOPHILS 0.3 % (0-2); EOSINOPHILS 2.5 % (0-7); HEMATOCRIT 32.5 % (36.0-48.0); HEMOGLOBIN 10.6 g/dL (12-16); IMMATURE GRANULOCYTES 0.2 % (0-5); LYMPHOCYTES 19.4 % (15-50); MCH 28.1 pg (26.0-34.0); MCHC 32.6 g/dL (31.0-37.0); MCV 86.2 fL (80.0-100.0); MEAN PLATELET VOLUME 10.5 fL (7.4-10.4); MONOCYTES 7.3 % (2-11); NEUTROPHILS 70.3 % (40-80); PLATELET COUNT 160 10x3/uL (130-400); RBC 3.77 10x6/uL (4.00-5.40); RDW 16.3 % (11.5-14.5); WBC 9.4 10x3/uL (4.8-10.8)
[2017-12-28 03:43] LABS: HCG URINE NEGATIVE (NEGATIVE)
[2017-12-28 03:50] LABS: APPEARANCE CLOUDY (CLEAR); BILIRUBIN NEGATIVE (NEGATIVE); COLOR YELLOW (YELLOW); GLUCOSE NEGATIVE (NEGATIVE); KETONE NEGATIVE (NEGATIVE); NITRITE NEGATIVE (NEGATIVE); PROTEIN 2+ mg/dL (NEGATIVE); SPECIFIC GRAVITY 1.015 (1.005-1.020); UDS - AMPHET NEGATIVE QUAL (NEGATIVE); UDS - BARB NEGATIVE QUAL (NEGATIVE); UDS - BENZO NEGATIVE QUAL (NEGATIVE); UDS - COCAINE NEGATIVE QUAL (NEGATIVE); UDS - OPIATE POSITIVE QUAL (NEGATIVE); UDS - PCP NEGATIVE QUAL (NEGATIVE); UDS - THC NEGATIVE QUAL (NEGATIVE); UROBILINOGEN NORMAL (NORMAL)
[2017-12-28 03:52] LABS: BACTERIA MANY /hpf (NONE SEEN); EPITHELIAL CELLS 0-5 /hpf (0-5); RED CELLS - URINE 0-5 /hpf (0-5); WHITE CELLS - URINE 25-50 /hpf (0-5)
[2017-12-28 03:55] LABS: ALBUMIN 3.1 g/dL (3.4-5.0); BILIRUBIN - TOTAL 0.6 mg/dL (0.2-1.3); CALCIUM 8.4 mg/dL (8.5-10.1); CARBON DIOXIDE 24.6 mmol/L (21.0-32.0); CREATININE - SERUM 1.3 mg/dL (0.6-1.3); MAGNESIUM - SERUM 1.4 mg/dL (1.8-2.4); POTASSIUM - SERUM 3.6 mmol/L (3.5-5.1); PROTEIN - SERUM 6.7 g/dL (6.4-8.2)
[2017-12-28 13:37] LABS: CKMB 1.7 U/L (0.0-3.6); CREATINE KINASE 35 UL (21-215)
[2017-12-28 13:40] LABS: TROPONIN-I 0.181 ng/mL (0.000-0.060)
[2017-12-28 17:08] LABS: BASOPHILS 0.1 % (0-2); HEMATOCRIT 32.8 % (36.0-48.0); HEMOGLOBIN 10.5 g/dL (12-16); IMMATURE GRANULOCYTES 0.2 % (0-5); LYMPHOCYTES 12.6 % (15-50); MCH 27.8 pg (26.0-34.0); MCV 86.8 fL (80.0-100.0); MONOCYTES 5.1 % (2-11); PLATELET COUNT 159 10x3/uL (130-400); RBC 3.78 10x6/uL (4.00-5.40); RDW 16.3 % (11.5-14.5); WBC 8.7 10x3/uL (4.8-10.8)
[2017-12-28 17:44] LABS: CALC OSMOLALITY 280 mosm/kg (275-300); CALCIUM 8.4 mg/dL (8.5-10.1); CARBON DIOXIDE 22.4 mmol/L (21.0-32.0); CHLORIDE - SERUM 103 mmol/L (98-107); CKMB 1.9 U/L (0.0-3.6); CREATINE KINASE 37 UL (21-215); GLUCOSE 171 mg/dL (74-106); SODIUM 138 mmol/L (136-145); UREA NITROGEN 16 mg/dL (7-18); eGFR NON AFRICAN AMERICAN 59 mL/min (90-120)
[2017-12-28 17:45] LABS: TROPONIN-I 0.103 ng/mL (0.000-0.060)
[2017-12-28 23:41] LABS: CKMB 1.4 U/L (0.0-3.6); CREATINE KINASE 37 UL (21-215); TROPONIN-I 0.077 ng/mL (0.000-0.060)
[2017-12-29 00:35] VITALS: BP 124/49
[2017-12-29 04:42] VITALS: BP 146/56
[2017-12-29 06:25] LABS: BASOPHILS 0.1 % (0-2); EOSINOPHILS 0.4 % (0-7); HEMATOCRIT 30.6 % (36.0-48.0); HEMOGLOBIN 9.9 g/dL (12-16); IMMATURE GRANULOCYTES 0.3 % (0-5); LYMPHOCYTES 7.5 % (15-50); MCH 27.7 pg (26.0-34.0); MCHC 32.4 g/dL (31.0-37.0); MCV 85.5 fL (80.0-100.0); NEUTROPHILS 86.7 % (40-80); PLATELET COUNT 173 10x3/uL (130-400); RBC 3.58 10x6/uL (4.00-5.40); RDW 16.4 % (11.5-14.5); WBC 7.8 10x3/uL (4.8-10.8)
[2017-12-29 06:38] LABS: ALBUMIN 2.8 g/dL (3.4-5.0); ALKALINE PHOSPHATASE 92 U/L (46-116); ALT (SGPT) 27 U/L (10-68); BILIRUBIN - TOTAL 0.29 mg/dL (0.2-1.3); CALC OSMOLALITY 284 mosm/kg (275-300); CALCIUM 8.2 mg/dL (8.5-10.1); CARBON DIOXIDE 22.5 mmol/L (21.0-32.0); CHLORIDE - SERUM 108 mmol/L (98-107); GLUCOSE 179 mg/dL (74-106); MAGNESIUM - SERUM 1.5 mg/dL (1.8-2.4); POTASSIUM - SERUM 3.8 mmol/L (3.5-5.1); PROTEIN - SERUM 6.5 g/dL (6.4-8.2); SODIUM 142 mmol/L (136-145); UREA NITROGEN 8 mg/dL (7-18); eGFR NON AFRICAN AMERICAN 89 mL/min (90-120)
[2017-12-29 06:39] LABS: CREATININE - SERUM 0.7 mg/dL (0.6-1.3)
[2017-12-29 08:46] VITALS: BP 134/63
[2017-12-29 12:30] VITALS: BP 126/47
[2017-12-30 05:53] LABS: BASOPHILS 0.2 % (0-2); EOSINOPHILS 1.8 % (0-7); HEMATOCRIT 29.4 % (36.0-48.0); HEMOGLOBIN 9.4 g/dL (12-16); IMMATURE GRANULOCYTES 0.3 % (0-5); LYMPHOCYTES 22.2 % (15-50); MCH 27.6 pg (26.0-34.0); MCV 86.5 fL (80.0-100.0); MONOCYTES 7.9 % (2-11); NEUTROPHILS 67.6 % (40-80); PLATELET COUNT 179 10x3/uL (130-400); RDW 16.7 % (11.5-14.5); WBC 6.2 10x3/uL (4.8-10.8)
[2017-12-30 06:06] LABS: ALBUMIN 2.4 g/dL (3.4-5.0); ALKALINE PHOSPHATASE 94 U/L (46-116); BILIRUBIN - TOTAL 0.19 mg/dL (0.2-1.3); CALCIUM 7.8 mg/dL (8.5-10.1); CARBON DIOXIDE 22.2 mmol/L (21.0-32.0); CHLORIDE - SERUM 110 mmol/L (98-107); POTASSIUM - SERUM 3.8 mmol/L (3.5-5.1); PROTEIN - SERUM 5.8 g/dL (6.4-8.2); SODIUM 142 mmol/L (136-145); UREA NITROGEN 6 mg/dL (7-18)
[2017-12-30 06:16] LABS: ALT (SGPT) 35 U/L (10-68); CALC OSMOLALITY 282 mosm/kg (275-300); CREATININE - SERUM 0.5 mg/dL (0.6-1.3); GLUCOSE 129 mg/dL (74-106); eGFR NON AFRICAN AMERICAN > 90 mL/min (90-120)
[2017-12-30 10:40] VITALS: BP 128/69
[2017-12-30 12:00] VITALS: BP 157/79
[2017-12-30 15:32] VITALS: BP 139/52
== END 2017-12-30 16:57 | disposition home or self-care (01) ==
LOC: D.ER 02:20 → D.MS 04:37 → OBSVTIME 04:37 → D.M2 12-29 16:40
PROVIDERS: Family Medicine; Internal Medicine Interventional Cardiology
DX: T40.601A Poisoning by unspecified narcotics, accidental (unintentional), initial encounter (principal); R41.82 Altered mental status, unspecified; F41.8 Other specified anxiety disorders; G89.29 Other chronic pain; M54.9 Dorsalgia, unspecified; K21.9 Gastro-esophageal reflux disease without esophagitis; E83.42 Hypomagnesemia; F17.213 Nicotine dependence, cigarettes, with withdrawal; E78.5 Hyperlipidemia, unspecified; E11.9 Type 2 diabetes mellitus without complications; I10 Essential (primary) hypertension; J44.9 Chronic obstructive pulmonary disease, unspecified; N39.0 Urinary tract infection, site not specified; B96.1 Klebsiella pneumoniae [K. pneumoniae] as the cause of diseases classified elsewhere; I25.110 Atherosclerotic heart disease of native coronary artery with unstable angina pectoris; Z95.1 Presence of aortocoronary bypass graft; Z95.5 Presence of coronary angioplasty implant and graft

== ENCOUNTER → 2018-08-11 09:42 | Outpatient (CLI) | payer MEDICARE, MEDICAID ==
[2017-12-28 05:26] VITALS: BMI 23.8
--- NOTE | ~2018-08-11 | ST ---
PATIENT:GINA FUENTES MEDICAL RECORD: [id number] SEX: F LOCATION:[facility] ORDER #: ADMISSION DATE: 08/11/18 AGE OF PATIENT: 63 REFERRING PHYSICIAN: INTERPRETING PHYSICIAN: APRYL ORTIZ MD DATE OF SERVICE: 08/11/2018 PROCEDURE: Nuclear stress test. INDICATION: Angina, coronary artery disease, status post coronary artery bypass graft surgery, abnormal ECG. She was exercised on standard Lexiscan protocol with 32 mCi of sestamibi injected at peak stress, 11 mCi used previously for rest images. Gated SPECT reveals preserved ejection fraction at 64% with good wall motioning and thickening and brightening throughout all segments. SPECT imaging Cardiolite was used as myocardial perfusion agent. There are reversible changes anteriorly, apically, laterally. This includes the basal, mid, apical anterior segments at the apex itself, apical lateral, mid lateral, and basal lateral segments. The degree of reversibility is moderate. The amount of myocardium involved is extremely large. OVERALL IMPRESSION: This is a high risk markedly abnormal nuclear stress test with large area of reversible ischemia anteriorly, apically, and laterally with Gated SPECT revealing a preserved ejection fraction of 64% in this patient with a past history of coronary artery disease, does suggest recurrence of hemodynamically significant coronary artery disease, most likely multivessel disease. We will proceed with coronary angiography as followup study. TRANSINT:[id number] Voice Confirmation ID: [id number] DOCUMENT ID: [id number] APRYL ORTIZ MD CC: CARINA PAGE MD [id number] DICTATION DATE: 08/12/18 0939 DISTRICT GAUGER: 08/13/18 0141 DEP CLI 08/11/18 [id number] [place] [address]
== END | disposition home or self-care (01) ==
LOC: D.HCCARDIO 09:42
PROVIDERS: ATTEND Internal Medicine Interventional Cardiology
DX: I25.709 Atherosclerosis of coronary artery bypass graft(s), unspecified, with unspecified angina pectoris (principal)

== ENCOUNTER 2018-09-15 10:13 | Outpatient (CLI) | payer MEDICARE, MEDICAID ==
[~2018-09-15] VITALS: Ht 157.5 cm; Wt 59.1 kg
--- NOTE | ~2018-09-15 | HEMODYNAMI ---
PATIENT:GINA FUENTES MEDICAL RECORD: [id number] : 51 LOCATION:[facility] ADMISSION DATE: 09/15/18 Generatedon:09/15/201813:21 Patient name: GINA FUENTES Patient #: [id number] SSN: D OB: 1955 Date of study: 09/15/2018 Page: Of Hemodynamic Procedure Report Patient Data Patient Demographics Procedure consent was obtained First Name: GINA Gender: Female Last Name: ALFREDO : 1955 [facility] Initial: J Age: 63 year(s) Patient #: [id number] Race: Additional ID: [id number] Contact details Address: [address] [place] [address] State: [place] City: [facility] Zip code: [address] Past Medical History History of disease Date Diagnosis Comments CAD Allergies Allergen Reaction Date Comments Reported Codeine 02/13/2015 Other allergy 02/13/2015 IBUPROFEN Codeine 09/15/2018 Codeine 09/15/2018 Admission Admission Data Admission Date: 09/15/2018 Admission Time: 10:13 Weight (lbs.): 130.07 Weight (kg.): 59 Lab Results Lab Result Date: 09/15/2018 Lab Result Time: 0:00 Biochemistry Name Units Result Min Max BUN mg/dl 19 --(----)*- 7 18 Creatinine mg/dl 0.6 --(*---)-- 0.6 1.3 eGFR ml/min 90 --(*---)-- 90 120 NONAFRICAN CBC Name Units Result Min Max Hematocrit % 38 *-(----)-- 42 54 Hemoglobin g/dl 12.4 *-(----)-- 13.5 17.5 Procedure Procedure Types Cath Procedure Diagnostic Procedure LHC LHC w/Coronaries w/Grafts Sedation Charges Moderate Sedation up to 15 minutes PCI Procedure Coronary Stent Coronary Stent Initial Coronary Stent Additional Procedure Description Procedure Date Procedure Date: 09/15/2018 Procedure Start Time: 12:52 Procedure End Time: 13:15 Procedure Staff Name Function Kanu Patel MD Performing Physician Mariella Ramirez RT Monitor Nir Villaseñor RT Scrub Lupe Sun RT Scrub Dallas Duff RN Nurse Procedure Data Cath Procedure Fluoroscopy Diagnostic fluoroscopy Total fluoroscopy Time: 7.8 time: 7.8 min min Diagnostic fluoroscopy Total fluoroscopy dose: 565 dose: 565 mGy mGy Contrast Material Contrast Material Type Amount (ml) Isovue 300 115 Entry Location Entry Primary Successful Side Size Upsize Upsize Entry Closure Succes sful Closure Location (Fr) 1 (Fr) 2 (Fr) Remarks Device Remarks Femoral Right 5 Fr 6 Fr Exoseal artery Short Estimated blood loss: 10 ml Diagnostic catheters Device Type Used For End Catheter Placement MULTIPACK Pigtail 5 Fr Procedure catheter MULTIPACK JL 4.0 5Fr Procedure catheter MULTIPACK 3DRC 5Fr Procedure catheter Procedure Complications No complications Procedure Medications Medication Administration Route Dosage Oxygen etCO2 Nasal cannula 2 l/min Lidocaine 2% added to field 20 Heparin Flush Bag added to field 2 bags (1000units/500ml NS) 0.9% NaCl I.V. 100 ml/hr Versed I.V. 2 mg Fentanyl I.V. 100 mcg Heparin Bolus I.V. 4000 units Versed I.V. 1 mg Fentanyl I.V. 50 mcg Versed I.V. 1 mg Fentanyl I.V. 50 mcg Plavix P.O. 75 mg Versed I.V. 2 mg Hemodynamics Rest HGB: 12.4 (g/dl) Heart Rate: 66 (bpm) Snapshots Pre Cath Intra NCS Post Cath Vital Signs Time Heart Resp SPO2 etCO2 NIBP (mmHg) Rhythm Pain Sedation Rate (ipm) (%) (mmHg) Status Level (bpm) 12:41:12 63 19 94 0 140/94(109) NSR 0 (11) 10(A) , No pain 12:45:32 65 14 96 32.9 127/66(98) NSR 0 (11) 10(A) , No pain 12:49:48 65 15 96 38.2 128/68(100) NSR 0 (11) 10(A) , No pain 12:54:02 67 14 96 48.6 124/69(101) NSR 0 (11) 10(A) , No pain 12:58:09 73 11 95 46.4 139/79(118) NSR 0 (11) 9(A) , No pain 13:02:23 76 15 96 41.2 139/74(109) NSR 0 (11) 9(A) , No pain 13:06:36 77 12 96 40.4 157/84(115) NSR 0 (11) 9(A) , No pain 13:10:51 75 12 97 37.4 153/80(122) NSR 0 (11) 10(A) , No pain 13:15:11 78 14 98 41.2 158/79(123) NSR 0 (11) 10(A) , No pain Medications Time Medication Route Dose Verified Delivered Reason Notes Effectiveness by by 12:48:13 Oxygen etCO2 2 Kanuyaneth Haynes used for Nasal l/min Amanda Duff RN procedure cannula 12:48:20 Lidocaine 2% added 20ml Knauyaneth Bobby for local to vial Amanda Patel MD anesthetic field 12:48:34 Heparin Flush added 2 Kanu Kanu used for Bag to bags Amanda Patel MD procedure (1000units/500ml field NS) 12:48:44 0.9% NaCl I.V. 100 Kanu Haynes Per physician ml/hr Amanda Duff RN 12:52:11 Versed I.V. 2 mg Kanu Haynes for sedation Amanda Duff RN 12:52:17 Fentanyl I.V. 100 Kanuyaneth Wareie for sedation mcg Amanda Duff RN 12:56:51 Versed I.V. 1 mg Kanu Haynes for sedation Amanda Duff RN 12:56:55 Fentanyl I.V. 50 Kanu Haynes for sedation mcg Amanda Duff RN 12:59:56 Heparin Bolus I.V. 4000 Kanu Haynes for verif ied units Amanda Duff RN anticoagulation with dr patel 13:02:53 Versed I.V. 1 mg Kanu Haynes for sedation Amanda Duff RN 13:02:59 Fentanyl I.V. 50 Kanu Haynes for sedation mcg Amanda Duff RN 13:10:32 Versed I.V. 2 mg Kanu Haynes for sedation Amanda Duff RN 13:15:12 Plavix P.O. 75 mg Kanu Haynes for Amanda Duff RN antiplatelet therapy Procedure Log Time Note 12:28:38 Dallas Duff RN sent for patient. Start room use. 12:28:39 Signed procedure consent form obtained from patient. 12:31:59 Time tracking: Regular hours (M-F 7:00 - 5:00) 12:32:03 Plan of Care:Hemodynamics will remain stable., Cardiac rhythm will remain stable., Comfort level will be maintained., Respiratory function will remain adequate., Patient/ family verbilizes understanding of procedure., Procedure tolerated without complication., Recovers from procedure without complications.. 12:32:12 Patient allergic to Codeine 12:32:21 Patient Weight : 130.07 lbs 12:32:55 Lab Result : BUN 19 mg/dl 12::55 Lab Result : Creatinine 0.6 mg/dl 12::55 Lab Result : Hemoglobin 12.4 g/dl 12::55 Lab Result : eGFR NONAFRICAN 90 ml/min 12:32:55 Lab Result : Hematocrit 38 % 12:33:28 Patient received from Pre/Post Procedure Room to CCL 1 Alert and oriented. Tansferred to table in Supine position. 12:33:29 Warm blankets applied, and edda hugger turned on for patient comfort. 12:33:29 Correct patient and procedure confirmed by team. 12:33:29 ECG and BP/O2 sat monitors applied to patient. 12:40:03 Vital chart was started 12:40:08 Rhythm: sinus rhythm 12:40:09 Full Disclosure recording started 12:40:12 Pre-procedure instructions explained to patient. 12:40:13 Pre-op teaching completed and patient verbalized understanding. 12:40:16 Family in patients room. 12:40:18 Patient NPO since Midnight. 12:40:19 Is patient on blood thinner?Yes 12:40:21 ACC The patient was administered the following blood thiners within the last 24 hours: ACCPlavix 12:40:23 Patient diabetic? Yes. 12:40:26 If diabetic: On Metformin? Yes 12:40:29 If on Metformin: Last Dose? 09/14/2018 12:40:34 Patient not . Patient is over age 55. 12:40:35 Previous problem with sedation/anesthesia? No ? 12:40:37 Snore? Yes 12:40:38 Sleep apnea? No 12:40:39 Deviated septum? No 12:40:55 Opens mouth fully? Yes 12:40:56 Sticks out tongue? Yes 12:41:00 Airway obstruction? Yes COPD 12:41:11 Dentures? No OUT 12:41:15 Pre procedure: right dorsailis pedis pulse 2+ Normal; easily identifiable; not easily obliterated 12:41:18 Patient pain scale 0/10 ?. 12:41:25 IV patent on arrival in left hand with 0.9% NaCl at [facility]. 12:41:27 Lab results completed and on chart. 12:41:35 Right groin area was prepped with chlora-prep and draped in sterile fashion 12:41:40 Alarms reviewed by R. N. 12:41:41 Sharps counted by scrub and verified by R.N. 12:41:47 Use device set Femoral Dx 12:41:48 ACIST Syringe (22310) opened to sterile field. 12:41:48 Bag Decanter (2002S) opened to sterile field. 12:41:49 ACIST Hand Control (00245) opened to sterile field. 12:41:50 ACIST Manifold (90404) opened to sterile field. 12:41:51 Tegaderm 4 x 4 (1626W) opened to sterile field. 12:42:17 Medline Cath Pack ([id number]) opened to sterile field. 12:42:18 DIAGNOSTIC Multipack 5Fr catheter set (ZT1339) opened to sterile field. 12:42:21 SHEATH 5FR [place] (SYX055) opened to sterile field. 12:42:22 EMERALD Guide Wire (128-617) opened to sterile field. 12:45:11 Baseline sample Acquired. 12:48:13 Oxygen 2 l/min etCO2 Nasal cannula was administered by Dallas Duff RN; used for procedure; 12:48:20 Lidocaine 2% 20ml vial added to field was administered by Kanu Patel MD; for local anesthetic; 12:48:34 Heparin Flush Bag (1000units/500ml NS) 2 bags added to field was administered by Kanu Patel MD; used for procedure; 12:48:44 0.9% NaCl 100 ml/hr I.V. was administered by Dallas Duff RN; Per physician; 12:50:50 --------ALL STOP TIME OUT------ 12:50:50 Final Timeout: patient, procedure, and site verified with staff and physician. All members of the team are in agreement. 12:50:52 Right groin site verified by team. 12:50:55 Fire Safety Assessment: A--An alcohol-based skin anteseptic being used preoperatively., C--Open oxygen or nitrous oxide is being used., D--An ESU, laser, or fiber-optic light is being used. 12:50:57 Physical assessment completed. ASA score P 2 - A patient with mild systemic disease as per Kanu Patel MD. 12:51:08 1) 90+ Normal kidney functon but urine findings or structural abnormalities or genetic trait point to kidney disease. 12:51:11 Maximum allowable contrast does (3.7 X eGFR X 0.75)250 ml. 12:51:14 Sedation plan: IV Moderate Sedation Medication:Versed, Fentanyl 12:51:59 Procedure started. 12:52:11 Versed 2 mg I.V. was administered by Dallas Duff RN; for sedation; 12:52:17 Fentanyl 100 mcg I.V. was administered by Dallas Duff RN; for sedation; 12:52:35 Zero performed for pressure channel P1 12:52:43 Local anesthetic to right femoral artery with Lidocaine 2% by Kanu Patel MD.INITIAL ACCESS ONLY 12:52:47 Zero performed for pressure channel P1 12:52:55 Zero performed for pressure channel P1 12:53:11 A 5 Fr sheath was inserted into the Right Femoral artery 12:53:28 A MULTIPACK Pigtail 5 Fr catheter was advanced over the wire and used for Procedure. 12:53:51 LV gram done using CROW 12:53:54 Injector settings: Ml/sec: 10, Volume: 20, 12:53:58 EF : 50 % 12:54:36 A MULTIPACK JL 4.0 5Fr catheter was advanced over the wire and used for Procedure. 12:55:54 LCA angiography performed. 12:55:57 Catheter removed. 12:56:09 A MULTIPACK 3DRC 5Fr catheter was advanced over the wire and used for Procedure. 12:56:49 MCFADDEN to LAD angiography performed. 12:56:51 Versed 1 mg I.V. was administered by Dallas Duff RN; for sedation; 12:56:55 Fentanyl 50 mcg I.V. was administered by Dallas Duff RN; for sedation; 12:57:39 RCA angiography performed. 12:57:53 Catheter removed. 12:58:01 SHEATH 6FR [place] (SSS885) opened to sterile field. 12:58:09 INFLATOR Merit BasixCompak (TP1633) opened to sterile field. 12:58:10 CHOICE PT Extra Support 182cm wire ([id number]) opened to sterile field. 12:58:17 Sheath upsized to a 6 Fr Short. 12:58:32 GUIDE 6FR XBLAD 3.5 SH catheter ([id number]) opened to sterile field. 12:59:25 6 Fr XBLAD 3.5 SH guide catheter was inserted over the wire 12:59:56 Heparin Bolus 4000 units I.V. was administered by Dallas Duff RN; for anticoagulation; verified with dr patel 13:00:35 CHOICE ES 182 wire advanced. 13:01:02 WIRE ADVANCED ACROSS DIAGONAL 13:02:21 Place stent Inflation Number: 1 A PAIGE RX 2.5 x 08 stent ([id number]) was prepped and advanced across the 1st Diag . The stent was deployed at 11 RAMA for 0:10 (min:sec) . 13:02:53 Versed 1 mg I.V. was administered by Dallas Duff RN; for sedation; 13:02:59 Fentanyl 50 mcg I.V. was administered by Dallas Duff RN; for sedation; 13:02:59 Stent catheter was removed intact over wire. 13:03:08 Wire redirected to RAMUS. 13:04:58 Place stent Inflation Number: 1 A PAIGE RX 2.25 x 26 stent ([id number]) was prepped and advanced across the Ramus 90. The stent was deployed at 15 RAMA for 0:10 (min:sec) 0. 13:05:36 Stent catheter was removed intact over wire. 13:08:58 WHISPER 300cm guide wire ([id number]) opened to sterile field. 13:09:42 SuperCross Microcatheter 90 angle (5304) opened to sterile field. 13:09:59 SUPER CROSS CATH AND WHISPER 300 WIRE ADVANCED 13:10:32 Versed 2 mg I.V. was administered by Dallas Duff RN; for sedation; 13:13:11 UNABLE TO CROSS CIRC WITH SUPER CROSS 13:13:15 Wire removed. 13:13:15 Guide catheter removed. 13:13:20 EXOSEAL 6Fr (EX600) opened to sterile field. 13:13:31 Sheath removed intact; hemostasis achieved with Exoseal to the Right Femoral artery. 13:13:35 Procedure ended.(Physican Out) 13:14:24 Fluoroscopy time 07.80 minutes. 13:14:28 Fluoroscopy dose: 565 mGy 13:14:28 Flurop Dose total: 565 13:14:32 Contrast amount:Isovue 300 115ml. 13:14:34 Sharps counted by scrub and verified by R.N. 13:14:36 Post-op/insertion site Right Femoral artery dressed using a 4 x 4 and Tegaderm. 13:14:39 Post-procedure physical assessment completed. ASA score P 2 - A patient with mild systemic disease as per Kanu Patel MD. 13:14:41 Post procedure rhythm: sinus rhythm 13:14:44 Estimated blood loss: 10 ml 13:14:46 Post procedure instruction explained to patient.Patient verbalizes understanding. 13:14:46 Patient needs reinforcement of post procedure teaching. 13:15:12 Plavix 75 mg P.O. was administered by Dallas Duff RN; for antiplatelet therapy; 13:15:12 Procedure type changed to Cath procedure, Diagnostic procedure, LHC, LHC w/Coronaries w/Grafts, Sedation Charges, Moderate Sedation up to 15 minutes, PCI procedure, Coronary Stent, Coronary Stent Initial, Coronary Stent Additional 13:15:46 Procedure and supply charges have been captured, reviewed, submitted and are correct. 13:15:48 Procedure Complication : No complications 13:15:50 Vital chart was stopped 13:15:51 See physician's report for complete and final results. 13:15:53 Report given to Pre/Post Procedure Room. 13:15:55 Patient transfered to Pre/Post Procedure Room with Bed. 13:15:57 Procedure ended. 13:15:57 Full Disclosure recording stopped 13:16:00 End room use (Document Last) Intervention Summary Intervention Notes Time ActionType Lesion and Equipment Used Action# Pressure Duration Attributes 13:02:21 Place stent 1st Diag PAIGE RX 2.5 x 1 11 00:10 08 stent ([id number]) 13:04:58 Place stent Ramus PAIGE RX 2.25 x 1 15 00:10 26 stent ([id number]) Device Usage Item Name Manufacture Quantity Catalog Number Hospital Part Current M inimal Lot# / Charge Number Stock Stock Serial# Code ACIST Syringe Acist 1 00254 278481 297894 932730 2 0 (58980) Medical Systems Inc Bag Decanter Microtek 1 2001S 526694 94845 832338 5 (2001S) Medical Inc. ACIST Hand Acist 1 29582 506587 961478 217751 5 Control Medical (49121) Systems Inc ACIST Manifold Acist 1 98199 559511 393715 232455 5 (43370) Medical Systems Inc Tegaderm 4 x 4 3M 1 1626W 542234 046859 035727 5 (1626W) Medline Cath Medline 1 [id number] 022621 48226 890875 5 Pack ([id number]) DIAGNOSTIC Cardinal 1 GX2699 890957 12084 137509 3 0 Multipack 5Fr Health catheter set (YP1333) SHEATH 5FR Terumo 1 AIQ845 085135 990827 520329 5 [place] (RPS277) EMERALD Guide Cardinal 1 502-455 529396 421272 862221 5 Wire (502-455) Health MULTIPACK Cardinal 1 538468 5 Pigtail 5 Fr Health catheter MULTIPACK JL Cardinal 1 158622 5 4.0 5Fr Health catheter MULTIPACK 3DRC Cardinal 1 012578 5 5Fr catheter Health SHEATH 6FR Terumo 1 VJC287 578900 219974 633697 4 0 [place] (JDQ128) INFLATOR Merit Merit 1 WF4548 004336 680553 819705 1 5 AndroJekvaInspiration [employer] [facility] (OC9117) CHOICE PT Corona 1 [id number] 004821 221819 757385 5 Extra Support Scientific 182cm wire ([id number]) GUIDE 6FR Cardinal 1 [id number] 944081 491036 076737 3 XBLAD 3.5 SH Health catheter (52937619) PAIGE RX 2.5 x Medtronic 1 [id number] 856320 2735194 802472 5 [id number] 08 stent ([id number]) PAIGE RX 2.25 x Medtronic 1 [id number] 357778 6812608 440199 5 [id number] 26 stent ([id number]) WHISPER 300cm Kemp 1 [id number] 659063 765506 026237 5 guide wire Vascular ([id number]) SuperCross Vascular 1 5304 287748 759110 870582 5 Microcatheter Solutions 90 angle (5304) EXOSEAL 6Fr Cardinal 1 EX600 434915 014074 597613 1 0 (EX600) Health Signature Audit [place] Stage Time Signature Unsigned Intra-Procedure 09/15/2018 Mairella Ramirez 1:21:26 PM RT(R) Signatures Performing Physician : Signature : Kanu Patel MD Date : Time : Monitor : Mariella Ramirez Signature : RT Date : Time : Nurse : Dallas Duff RN Signature : Date : Time : [place] [id number] [place] [address]
[2018-09-15] MEDS ORDERED: ULTRAM50 MG PO (10:44)
[2018-09-15] MEDS ORDERED: VALIUM10 MG PO (10:44)
[2018-09-15] MEDS ORDERED: CARAFATE1 G PO (10:45)
[2018-09-15] MEDS ORDERED: FLORINEF 0.1 M0.1 MG PO (10:45)
[2018-09-15] MEDS ORDERED: NAPROSYN500 MG PO (10:46)
[2018-09-15 10:58] VITALS: BP 170/72; Ht 157.5 cm; Wt 59.1 kg
[2018-09-15 11:47] LABS: BASOPHILS 0.4 % (0-2); EOSINOPHILS 3.1 % (0-7); HEMOGLOBIN 12.4 g/dL (12-16); IMMATURE GRANULOCYTES 0.3 % (0-5); LYMPHOCYTES 22.8 % (15-50); MCH 26.3 pg (26.0-34.0); MCHC 32.6 g/dL (31.0-37.0); MCV 80.5 fL (80.0-100.0); MONOCYTES 5.2 % (2-11); NEUTROPHILS 68.2 % (40-80); PLATELET COUNT 191 10x3/uL (130-400); RBC 4.72 10x6/uL (4.00-5.40); RDW 17.3 % (11.5-14.5); WBC 7.4 10x3/uL (4.8-10.8)
[2018-09-15 11:55] LABS: CALC OSMOLALITY 285 mosm/kg (275-300); CALCIUM 9.5 mg/dL (8.5-10.1); CARBON DIOXIDE 21.2 mmol/L (21.0-32.0); CHLORIDE - SERUM 106 mmol/L (98-107); CREATININE - SERUM 0.6 mg/dL (0.6-1.3); GLUCOSE 158 mg/dL (74-106); SODIUM 141 mmol/L (136-145); UREA NITROGEN 19 mg/dL (7-18); eGFR NON AFRICAN AMERICAN > 90 mL/min (90-120)
--- NOTE | 2018-09-15 13:30 | NUR ---
PATIENT ARRIVED TO ROOM 5. PLACED ON CM. VSS ON 2L NC. RIGHT GROIN DRESSING IS CDI, NO S/S OF BLEEDING OR HEMATOMA.
--- NOTE | 2018-09-15 13:35 | NUR ---
PHYSICIAN AT BEDSIDE TO UPDATE PATIENT.
--- NOTE | 2018-09-15 13:45 | NUR ---
PATIENT AWAKE, SPOUSE PRESENT AT BEDSIDE. VSS ON 2L NC. RIGHT GROIN DRESSING IS CDI, NO S/S OF BLEEDING OR HEMATOMA. PATIENT GIVEN ORANGE JUICE AND CRACKERS, NO N/V. WILL CONTINUE TO MONITOR.
--- NOTE | 2018-09-15 14:15 | NUR ---
PATIENT RESTING, VSS ON 2L NC. RIGHT GROIN DRESSING IS CDI, NO S/S OF BLEEDING OR HEMATOMA. NO C/O PAIN, NUMBNESS, OR TINGLING. NO N/V. PRESENT AT BEDSIDE.
--- NOTE | 2018-09-15 14:45 | NUR ---
PATIENT INTERMITTENTLY RESTING. VSS ON 1L NC. RIGHT GROIN DRESSING IS CDI, NO S/S OF BLEEDING OR HEMATOMA. NO C/O PAIN, NUMBNESS, OR TINGLING. NO N/V.
--- NOTE | 2018-09-15 15:15 | NUR ---
PATIENT RESTING, VSS ON 1L NC. RIGHT GROIN DRESSING IS CDI, NO S/S OF BLEEDING OR HEMATOMA. NO C/O PAIN, NUMBNESS, OR TINGLING. NO N/V.
--- NOTE | 2018-09-15 15:45 | NUR ---
PATIENT RESTING, VSS ON ROOM AIR. RIGHT GROIN DRESSING IS CDI, NO S/S OF BLEEDING OR HEMATOMA. NO C/O PAIN, NUMBNESS, OR TINGLING. TOLERATING PO FLUIDS. NO N/V.
--- NOTE | 2018-09-15 16:15 | NUR ---
HEAD OF BED ELEVATED TO 30 DEGREES. RIGHT GROIN DRESSING IS CDI, NO S/S OF BLEEDING OR HEMATOMA. NO C/O PAIN, NUMBNESS, OR TINGLING. VSS ON ROOM AIR. PATIENT EATING PRADIP CRACKERS AND DRINKING JUICE, NO N/V.
--- NOTE | 2018-09-15 16:45 | NUR ---
HEAD OF BED ELEVATED TO 90 DEGREES. RIGHT GROIN DRESSING IS CDI, NO S/S OF BLEEDING OR HEMATOMA. NO C/O PAIN, NUMBNESS, OR TINGLING. VSS ON ROOM AIR.
--- NOTE | 2018-09-15 17:05 | NUR ---
PATIENT VOIDED WITHOUT DIFFICULTY. IV REMOVED. RIGHT GROIN DRESSING IS CDI, NO S/S OF BLEEDING OR HEMATOMA.
--- NOTE | 2018-09-15 17:20 | NUR ---
WRITTEN AND VERBAL DISCHARGE EDUCATION GIVEN TO PATIENT AND SPOUSE, BOTH VOICE UNDERSTANDING. RIGHT GROIN DRESSING IS CDI, NO S/S OF BLEEDING OR HEMATOMA. PATIENT TRANSPORTED VIA WHEELCHAIR TO CAR WITH SPOUSE DRIVING, ALL BELONGINGS WITH PATIENT.
--- NOTE | 2018-09-16 16:51 | OP ---
PATIENT NAME: GINA FUENTES MEDICAL RECORD: [id number] :51 LOCATION:D.CAT ADMISSION DATE: SURGEON: APRYL ORTIZ MD DATE OF OPERATION: 09/15/2018 PROCEDURES: 1. PTCA and stent, LAD diagonal. 2. PTCA and stent, left circumflex ramus intermedius. 3. Left heart catheterization. 4. Selective coronary angiography. 5. Left ventriculogram. INDICATION: Angina and coronary artery disease. PROCEDURE IN DETAIL: After informed consent was obtained with detailed explanation of risks and benefits as well as alternative therapies, the patient elected to proceed with angiogram and angioplasty. The right femoral area was prepped and draped in normal sterile fashion. The right femoral artery was cannulated via modified Seldinger technique with placement of 6-Belarusian sheath. All catheters were exchanged through this sheath. FINDINGS: Left ventriculogram performed in standard 30-degree CROW view reveals good cardiac wall motion. Ejection fraction is 50% to 55%. SELECTIVE CORONARY ANGIOGRAPHY: 1. Left main is with no significant angiographic disease. 2. Left anterior descending is totally occluded proximally. 3. MCFADDEN to the LAD is widely patent. 4. There is a large diagonal system that takes off prior to the total occlusion of the LAD. This diagonal system has a 90% stenosis in it. 5. Ramus intermedius has previously placed stent that is widely patent; however, there is 90% stenosis proximal to the previously placed stent in the ramus intermedius. 6. The right coronary artery has mild irregularities, but no flow-limiting stenosis. PTCA AND STENT OF THE LAD DIAGONAL: The stent used was 2.5 x 8 mm [place]. Result was 0% residual stenosis. PTCA AND STENT OF THE LEFT CIRCUMFLEX RAMUS INTERMEDIUS: The stent used was 2.25 x 26 mm Louis. Result was 0% residual stenosis. OVERALL IMPRESSION: Successful PTCA and stent of the LAD diagonal as well as left circumflex ramus intermedius, both going from 90% initial stenoses to 0% residual. TRANSINT:[id number] Voice Confirmation ID: [id number] DOCUMENT ID: [id number] OPERATIVE REPORT [id number] GINA FUENTES APRYL ORTIZ MD at 165 CC: [id number] DICTATION DATE: 09/15/18 0551 EMBROIDERY SPECIALIST: 09/15/18 1346 DEP CLI 09/15/18 [facility] [address] [facility] [place] [address]
== END 2018-09-15 17:20 ==
LOC: D.CATH 10:13
PROVIDERS: ATTEND Internal Medicine Interventional Cardiology
DX: I25.119 Atherosclerotic heart disease of native coronary artery with unspecified angina pectoris (principal); Z95.5 Presence of coronary angioplasty implant and graft; Z01.812 Encounter for preprocedural laboratory examination
CPT/HCPCS: C9600 ×2; 93458

== ENCOUNTER → 2019-01-20 08:00 | Outpatient (CLI) | payer MEDICARE, MEDICAID ==
[2018-09-15 10:58] VITALS: BMI 23.8
[~2019-01-20 08:00] MED LIST changes: +CARAFATE1 G PO; +FLORINEF 0.1 M0.1 MG PO; +VALIUM10 MG PO
== END | disposition home or self-care (01) ==
LOC: D.MAMMO 08:00
PROVIDERS: ATTEND Family Medicine
DX: Z12.31 Encounter for screening mammogram for malignant neoplasm of breast (principal)

== ENCOUNTER 2019-03-07 08:00 | Outpatient (CLI) | payer MEDICARE, MEDICAID ==
[2018-09-15 10:58] VITALS: BMI 23.8
== END 2019-03-07 23:59 | disposition home or self-care (01) ==
LOC: D.MAMMO 08:00
PROVIDERS: ATTEND Family Medicine
DX: R92.8 Other abnormal and inconclusive findings on diagnostic imaging of breast (principal)